=== PATIENT | male | born 1955 | race African-American/Black ===

== ENCOUNTER 2017-09-27 09:27 | Emergency (ER) | payer MEDICAID ==
[~2017-09-27] VITALS: Ht 172.7 cm; Wt 66.0 kg
[~2017-09-27 09:27] MED LIST: BACL20TA PO; CHLO25CA10 PO; CIPR-263 PO; MULT-783 PO; NAPR-681 PO; RISP05 PO; TAMS-11 PO
[2017-09-27] MEDS ORDERED: KETOROLAC 60MG/2ML VIAL IM ONE (10:45)
[2017-09-27 12:19] VITALS: BP 111/81
== END 2017-09-27 12:20 | disposition home or self-care (01) ==
LOC: ER 09:50
DX: M54.5 Low back pain (principal)
CPT/HCPCS: 96372; 99283; J1885; Z7610

== ENCOUNTER 2019-04-12 23:56 | Emergency (ER) | payer MEDICAID ==
[~2019-04-12] VITALS: Ht 165.1 cm; Wt 69.0 kg
[~2019-04-12 23:56] MED LIST changes: -BACL20TA PO; -CHLO25CA10 PO; -CIPR-263 PO; +FOLI-43 PO; +LACT10SO7 PO; -NAPR-681 PO; +OMEP20CA5 PO; -RISP05 PO; +THIA100T72 PO
[2019-04-13] MEDS ORDERED: ONDANSETRON HCL 4MG/2ML INJ IV STA (01:20)
[2019-04-13] MEDS ORDERED: SODIUM CHLORIDE 0.9% 1,000 ML IV ONE (01:20)
[2019-04-13] MEDS ORDERED: FOLIC ACID 1 MG, THIAMINE HCL 100 MG, MVI, ADULT NO.1 10 ML in DEXTROSE 5% WATER 1,000 ML IV ONE ×4 (01:30)
[2019-04-13 02:19] LABS: BASOPHILS % 0.6 % (0.0-2.0); EOSINOPHILS % 1.6 % (0.0-5.0); HEMATOCRIT. 31.2 % (42.0-52.0); HEMOGLOBIN. 10.6 g/dL (14.0-18.0); LYMPHOCYTES % 39.1 % (20.0-50.0); MEAN CORPUSCULAR VOLUME 100.2 fL (80.0-94.0); MEAN PLATELET VOLUME 8.8 fl (7.4-10.4); MONOCYTES % 9.2 % (2.0-8.0); NEUTROPHILS % 49.5 % (40.0-76.0); PLATELET 314 x1000/uL (130-400); RED BLOOD CELL COUNT 3.12 mill/uL (4.7-6.1); RED CELL DISTRIBUTION WIDTH 12.9 % (11.6-14.6)
[2019-04-13 02:20] LABS: CLARITY URINE CLEAR (CLEAR); COLOR URINE YELLOW (YELLOW); KETONES URINE NEGATIVE (NEGATIVE); LEUKOCYTE ESTERASE URINE NEGATIVE (NEGATIVE); NITRITE URINE NEGATIVE (NEGATIVE); OCCULT BLOOD URINE NEGATIVE (NEGATIVE); PROTEIN URINE NEGATIVE (NEGATIVE); SPECIFIC GRAVITY URINE 1.011 (1.005-1.030); UROBILINOGEN URINE 0.2 E.U./dL (0.2-1.0)
[2019-04-13 02:24] LABS: CHLORIDE 108 mEq/L (98-107)
[2019-04-13 02:28] LABS: ETHANOL BLOOD 227 mg/dL
[2019-04-13 02:53] LABS: *AMPHETAMINES SCREEN URINE NEGATIVE (NEGATIVE); *BARBITURATES SCREEN URINE NEGATIVE (NEGATIVE)
[2019-04-13 02:54] LABS: *BENZODIAZEPINES SCREEN URINE NEGATIVE (NEGATIVE); *COCAINE SCREEN URINE NEGATIVE (NEGATIVE); METHADONE URINE SCREEN NEGATIVE (NEGATIVE); OPIATES URINE SCREEN NEGATIVE (NEGATIVE); PHENCYCLIDINE URINE SCREEN NEGATIVE (NEGATIVE)
[2019-04-13 02:55] LABS: CANNABINOID URINE SCREEN PRESUMTIVE POSITIVE (NEGATIVE)
[2019-04-13 06:52] VITALS: BP 108/64
== END 2019-04-13 06:51 | disposition home or self-care (01) ==
LOC: ER 23:56
DX: F10.229 Alcohol dependence with intoxication, unspecified (principal); Y90.0 Blood alcohol level of less than 20 mg/100 ml; R11.2 Nausea with vomiting, unspecified; J45.909 Unspecified asthma, uncomplicated; Z86.73 Personal history of transient ischemic attack (TIA), and cerebral infarction without residual deficits; Z79.899 Other long term (current) drug therapy
CPT/HCPCS: 36415; 71045; 80053; 80305; 80320; 81003; 83690; 84484; 85025; 93005; 96361; 96365; 96375; 99284; J2405; J3411; J3490; J7030; J7070; Z7610; G0480

== ENCOUNTER 2019-10-25 21:27 | Inpatient (IN) | payer MEDICAID ==
[~2019-10-25] VITALS: Ht 162.6 cm; Wt 49.9 kg
[~2019-10-25 21:27] MED LIST changes: +OMEP20CA14 PO; -OMEP20CA5 PO
[2019-10-25] MEDS ORDERED: FAMOTIDINE 20MG/2ML VIAL IV STA (22:05)
[2019-10-25] MEDS ORDERED: SODIUM CHLORIDE 0.9% 1,000 ML IV ONE (22:05)
[2019-10-25 22:56] LABS: BASOPHILS % 1.5 % (0.0-2.0); EOSINOPHILS % 1.4 % (0.0-5.0); HEMATOCRIT. 35.2 % (42.0-52.0); HEMOGLOBIN. 12.1 g/dL (14.0-18.0); LYMPHOCYTES % 29.9 % (20.0-50.0); MEAN CORPUSCULAR VOLUME 98.8 fL (80.0-94.0); MEAN PLATELET VOLUME 9.6 fl (7.4-10.4); MONOCYTES % 11.1 % (2.0-8.0); NEUTROPHILS % 56.1 % (40.0-76.0); PLATELET 197 x1000/uL (130-400); RED BLOOD CELL COUNT 3.56 mill/uL (4.7-6.1); RED CELL DISTRIBUTION WIDTH 13.7 % (11.6-14.6)
[2019-10-25 23:01] LABS: CHLORIDE 101 mEq/L (98-107)
[2019-10-25 23:04] LABS: INR 0.9; PROTHROMBIN TIME 10.1 sec (9.6-11.0)
[2019-10-25 23:39] LABS: CLARITY URINE CLEAR (CLEAR); COLOR URINE YELLOW (YELLOW); KETONES URINE NEGATIVE (NEGATIVE); LEUKOCYTE ESTERASE URINE TRACE (NEGATIVE); NITRITE URINE NEGATIVE (NEGATIVE); OCCULT BLOOD URINE TRACE (NEGATIVE); PROTEIN URINE TRACE (NEGATIVE); SPECIFIC GRAVITY URINE 1.012 (1.005-1.030)
[2019-10-26 08:40] VITALS: BP 126/68
[2019-10-26 09:52] LABS: *AMPHETAMINES SCREEN URINE NEGATIVE (NEGATIVE); *BARBITURATES SCREEN URINE NEGATIVE (NEGATIVE); *BENZODIAZEPINES SCREEN URINE NEGATIVE (NEGATIVE); *COCAINE SCREEN URINE NEGATIVE (NEGATIVE); METHADONE URINE SCREEN NEGATIVE (NEGATIVE)
[2019-10-26 09:53] LABS: CANNABINOID URINE SCREEN PRESUMTIVE POSITIVE (NEGATIVE); OPIATES URINE SCREEN NEGATIVE (NEGATIVE); PHENCYCLIDINE URINE SCREEN NEGATIVE (NEGATIVE)
[2019-10-26] MEDS ORDERED: LORAZEPAM 2MG/ML CPJ IV PRN (10:30)
[2019-10-26] MEDS ORDERED: ACETAMINOPHEN 325MG TABLET PO PRN (10:30)
[2019-10-26] MEDS ORDERED: ONDANSETRON HCL 4MG/2ML INJ IV PRN ×2 (10:30)
[2019-10-26 12:00] VITALS: BP 126/68
[2019-10-26] MEDS ORDERED: FOLIC ACID 1 MG, THIAMINE HCL 100 MG, MVI, ADULT NO.1 10 ML in DEXTROSE 5% WATER 1,000 ML IV ONE ×4 (12:00)
[2019-10-26 13:28] LABS: BASOPHILS % 0.9 % (0.0-2.0); EOSINOPHILS % 0.1 % (0.0-5.0); HEMATOCRIT. 34.8 % (42.0-52.0); HEMOGLOBIN. 11.9 g/dL (14.0-18.0); LYMPHOCYTES % 10.7 % (20.0-50.0); MEAN CORPUSCULAR HEMOGLOBIN 33.9 pg (28.0-32.0); MEAN CORPUSCULAR VOLUME 99.6 fL (80.0-94.0); MEAN PLATELET VOLUME 9.2 fl (7.4-10.4); MONOCYTES % 5.9 % (2.0-8.0); NEUTROPHILS % 82.4 % (40.0-76.0); PLATELET 174 x1000/uL (130-400); RED CELL DISTRIBUTION WIDTH 13.5 % (11.6-14.6)
[2019-10-26 13:36] LABS: CHLORIDE 102 mEq/L (98-107)
[2019-10-26 16:00] VITALS: BP 117/63
[2019-10-26 16:02] VITALS: BP 117/63
[2019-10-26 20:00] VITALS: BP 125/68
[2019-10-26] MEDS: PANTOPRAZOLE SODIUM 40 MG/VIAL IV SCH (21:11)
[2019-10-27] VITALS: BP 113/66
[2019-10-27 04:00] VITALS: BP 127/68
[2019-10-27 06:32] LABS: BASOPHILS % 0.5 % (0.0-2.0); EOSINOPHILS % 1.4 % (0.0-5.0); HEMATOCRIT. 34.3 % (42.0-52.0); HEMOGLOBIN. 11.9 g/dL (14.0-18.0); LYMPHOCYTES % 27.4 % (20.0-50.0); MEAN CORPUSCULAR HEMOGLOBIN 33.8 pg (28.0-32.0); MEAN CORPUSCULAR VOLUME 97.6 fL (80.0-94.0); MEAN PLATELET VOLUME 10.1 fl (7.4-10.4); MONOCYTES % 13.1 % (2.0-8.0); NEUTROPHILS % 57.6 % (40.0-76.0); PLATELET 177 x1000/uL (130-400); RED BLOOD CELL COUNT 3.52 mill/uL (4.7-6.1); RED CELL DISTRIBUTION WIDTH 13.3 % (11.6-14.6)
[2019-10-27 06:34] LABS: CHLORIDE 98 mEq/L (98-107)
[2019-10-27 08:00] VITALS: BP 120/62
[2019-10-27] MEDS: PANTOPRAZOLE SODIUM 40 MG/VIAL IV SCH ×2 (09:08→21:02)
[2019-10-27 12:00] VITALS: BP 144/66
[2019-10-27 20:00] VITALS: BP 113/63
[2019-10-28] VITALS: BP 106/63
[2019-10-28 04:00] VITALS: BP 115/60
[2019-10-28 08:00] VITALS: BP 108/65
[2019-10-28] MEDS: PANTOPRAZOLE SODIUM 40 MG/VIAL IV SCH (09:49)
[2019-10-28 11:06] VITALS: BP 108/65
[2019-10-28 12:00] VITALS: BP 118/71
== END 2019-10-28 13:10 | disposition home or self-care (01) | DRG 242 ==
LOC: ER 21:27 → MICUSO 23:37 → EDBEDREQTM 23:42 → EDBEDREQ 23:42 → 6WST 10-26 08:40
PROVIDERS: ADMIT Internal Medicine; ATTEND Internal Medicine
DX: K22.6 Gastro-esophageal laceration-hemorrhage syndrome (principal); D64.9 Anemia, unspecified; F10.10 Alcohol abuse, uncomplicated; F12.90 Cannabis use, unspecified, uncomplicated; F17.210 Nicotine dependence, cigarettes, uncomplicated; J45.909 Unspecified asthma, uncomplicated; K29.20 Alcoholic gastritis without bleeding; Z86.73 Personal history of transient ischemic attack (TIA), and cerebral infarction without residual deficits; Z79.899 Other long term (current) drug therapy; Z71.6 Tobacco abuse counseling
CPT/HCPCS: 36415; 71045; 80048; 80053; 80305; 80320; 81003; 85025; 86850; 86900; 93005; 99291; C9113; J2405; J3411; J3490; J7030; J7070; G0480

== ENCOUNTER 2022-06-15 10:42 | Emergency (ER) | payer MEDICAID ==
[~2022-06-15] VITALS: Ht 172.7 cm; Wt 70.0 kg
[2022-06-15] MEDS ORDERED: IBUPROFEN 400MG TABLET PO ONE (11:15)
[2022-06-15] MEDS ORDERED: PERMETHRIN 5% CREAM 60GM TOP ONE (11:15)
[2022-06-15] MEDS ORDERED: SILVER SULFADIAZINE 1% CREAM 25GM TOP ONE (11:15)
[2022-06-15] MEDS ORDERED: PERM60CR4 TP (12:21)
[2022-06-15] MEDS ORDERED: SILV20CR13 TP (12:21)
[2022-06-15 13:49] VITALS: BP 127/86
== END 2022-06-15 13:50 | disposition home or self-care (01) ==
LOC: ER 10:42
DX: T30.0 Burn of unspecified body region, unspecified degree (principal); T79.9XXA Unspecified early complication of trauma, initial encounter; S60.561A Insect bite (nonvenomous) of right hand, initial encounter; J45.909 Unspecified asthma, uncomplicated; W57.XXXA Bitten or stung by nonvenomous insect and other nonvenomous arthropods, initial encounter; Y93.89 Activity, other specified; Y92.89 Other specified places as the place of occurrence of the external cause; Y99.8 Other external cause status
CPT/HCPCS: 99283